=== PATIENT | female | born 1930 | race Caucasian/White ===

== ENCOUNTER 2017-08-17 07:30 | Inpatient (IN) | payer MEDICARE ==
[~2017-08-17] VITALS: Ht 130 cm; Wt 62.5 kg
--- NOTE | ~2017-08-17 | PROC ---
[facility] [address] [place] [address] PROCEDURE REPORT Name: CRISS CLEMONS Room: [address] IN .R.#: [id number] Admission: 08/17/17 Attend Phys: Rohith Summers, Discharge: Date of : [birth year] Report #: [id number] THIS REPORT FOR: //name// For GI report, please see the Provation report in Perceptive 7 content. By: 1135Medical Records Staff BRENT /STEFFANY
[~2017-08-17 07:30] MED LIST: ALBUTEROL2.5 MG/0.5 IH; ALBUTEROL2.5 MG/3 M IH; ALLOPURINOL 10100 M1 PO; APAP500 PO; ASPIR-LOW81 MG PO; ASPIRIN EC81 M1 PO; ASPIRIN81 M2 PO; AUGMENTIN 500-1 EACH PO; AZITHROMYCIN 2250 MG PO; CALCIUM + D3 E1 EACH PO; CALCIUM 600 +1 EAC9 PO; CENTRUM SILVER1 EAC4 PO; CLARITIN10 MG PO; COLACE100 MG PO; DYAZIDE 37.5-21 EACH PO; GARLIC300 MG PO; KLOR-CON 10 ER10 MEQ PO; LASIX 20 MG TAB20 MG PO; LEVOTHYROXIN0.025 MG PO; LIPITOR10 MG PO; LISINOPRIL10 MG PO; LISINOPRIL20 MG PO; MAGNESIUM250 M1 PO; MAGOX 400400 MG PO; MIRALAX17 GM PO; NORVASC10 MG PO; PAIN RELIEVER500 M3 PO; PLAVIX 75 MG TA75 M1 PO; POTASSIUM CHLO10 MEQ PO; SINGULAIR 10 MG10 M1 PO; TOPROL XL25 MG PO; TRIAMTERENE-HC1 EAC1 PO; VITAMIN C + RO500 MG PO; VITAMIN D400 UNI1 PO; VITAMINC500 PO; [UNRECOGNIZED DRUG - OTHER] PO
[2017-08-17 07:32] VITALS: BP 110/62
[2017-08-17] MEDS ORDERED: TRAMADOL 50 MG50 MG PO (07:41)
[2017-08-17] MEDS ORDERED: TYLENOL325 MG PO (07:42)
[2017-08-17] MEDS ORDERED: ANTIVERT25 MG (07:42)
[2017-08-17] MEDS ORDERED: BENGAY113 GM (07:43)
[2017-08-17] MEDS ORDERED: MELATONIN3 MG PO (07:43)
[2017-08-17] MEDS ORDERED: MYRBETRIQ25 MG PO (07:44)
[2017-08-17] MEDS ORDERED: ELIQUIS2.5 MG PO (07:44)
[2017-08-17] MEDS ORDERED: ARICEPT 5 MG TAB5 MG PO (07:45)
[2017-08-17] MEDS ORDERED: NAMENDA 10 MG T10 MG PO (07:45)
[2017-08-17] MEDS ORDERED: CENTRUM SILVER1 EAC4 PO (07:46)
[2017-08-17] MEDS ORDERED: VIACTIV SOFT C1 EACH PO (07:47)
[2017-08-17 08:09] LABS: HEMATOCRIT 24.1 % (37.0-47.0); HEMOGLOBIN 7.6 gm/dL (12.0-15.0); MCH 33.1 pg (26.0-34.0); MCHC 31.5 g/dL (28.0-37.0); MCV 105.2 fL (80.0-100.0); MPV 8.6 fl. (7.2-11.1); NUCLEATED RBCS 0 /100WBC; PLATELET COUNT* 166 thou/uL (150-400); RBC 2.29 mil/uL (4.20-5.00); RDW-CV 17.7 % (10.5-14.5)
[2017-08-17 08:14] LABS: WBC 55.7 thou/uL (4.0-11.0)
[2017-08-17 08:16] LABS: ANION GAP 8 mmol/L (7-16); BUN 32 mg/dL (7-18); CHLORIDE 103 mmol/L (98-107); CO2 28 mmol/L (21-32); CREATININE 1.2 mg/dL (0.6-1.3); GLUCOSE 110 mg/dL (70-99); POTASSIUM 4.2 mmol/L (3.5-5.1); SODIUM 139 mmol/L (136-145)
[2017-08-17 08:17] LABS: APTT 25.4 Seconds (25.0-31.3); INR 1.1; PROTIME 10.9 Seconds (9.20-11.50)
[2017-08-17 08:23] LABS: ALBUMIN 2.7 g/dL (3.4-5.0); ALKALINE PHOSPHATASE 99 U/L (46-116); LIPASE 165 U/L (73-393); SGOT 15 U/L (15-37); SGPT 17 U/L (30-65); TOTAL BILIRUBIN 0.4 mg/dL (<0.1-1.0); TOTAL PROTEIN 5.3 g/dL (6.4-8.2); TROPONIN-I LEVEL <0.06 ng/mL (<0.06)
--- NOTE | 2017-08-17 08:28 | NUR ---
PT HAS BEEN STUCK MULTIPLE TIMES FOR AN IV, WITH UNSUCCESSFUL ATTEMPTS. DR. VILLEGAS NOTIFIED
--- NOTE | 2017-08-17 08:56 | NUR ---
CT OF ABDOMEN PELVIS W/O CONTARST COMPLEATED PATIENT RETURNED TO ED
[2017-08-17 09:51] VITALS: BP 117/42
[2017-08-17 10:00] VITALS: BP 115/42
[2017-08-17 10:08] LABS: ABSOLUTE NEUTROPHILS 2.2 thou/uL (1.6-8.1)
--- NOTE | 2017-08-17 10:08 | EKG ---
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: Karel HERRERA : 1930 Requested By: Pepe Croft Order Number: [id number] MD: Arsh Cuello Measurements Intervals [place] Rate: 84 P: DC: QRS: -54 QRSD: 136 T: -8 QT: 443 QTc: 524 Interpretive Statements Atrial fibrillation RBBB and LAFB Left ventricular hypertrophy Baseline wander in lead(s) V2 Compared to ECG 06/19/2014 09:38:42 no change Electronically Signed On 08-17-2017 10:08:07 CDT by Arsh Cuello [email or web address] <ELECTRONICALLY SIGNED> By: Arsh Cuello MD, [facility] 08/17/17 1008 [phone] Arsh Cuello MD, [facility] /EPI
[2017-08-17 10:17] LABS: ABSOLUTE LYMPHOCYTES 53.5 thou/uL (0.8-5.3)
[2017-08-17 10:20] LABS: ATYPICAL LYMPHS 9 %; PLATELET ESTIMATE ADEQUATE
[2017-08-17 10:30] LABS: ANISOCYTOSIS 1+; OVALOCYTES 1+
[2017-08-17 10:31] LABS: MACROCYTES 1+
[2017-08-17 12:32] LABS: HEMATOCRIT 22.8 % (37.0-47.0); MCH 32.8 pg (26.0-34.0); MCHC 30.9 g/dL (28.0-37.0); MCV 106.3 fL (80.0-100.0); MPV 8.4 fl. (7.2-11.1); RBC 2.15 mil/uL (4.20-5.00); RDW-CV 17.8 % (10.5-14.5)
[2017-08-17 12:35] LABS: WBC 55.5 thou/uL (4.0-11.0)
--- NOTE | 2017-08-17 14:15 | NUR ---
RECEIVED REPORT FROM ERICK YEE IN ER. PT TRANSFERED TO TELE FLOOR AROUND 0955. PT ALERT TO SELF ONLY, PLEASANTLY CONFUSED. VSS. O2 SAT 96% ON RA. PT ORIENTED TO ROOM, BED AND CALL LIGHT - COMMUNICATES UNDERSTANDING BUT IS FORGETFUL AND NEEDS REMINDERS TO USE CALL LIGHT AND NOT GET UP WITHOUT HELP. FAMILY AT BEDSIDE THIS AM DURING ADMISSION - HELPED TO ANSWER ADMISSION QUESTIONS. CARBIDE TOOL DIE MAKER PLACED TRACING AFIB, CHRONIC. ADMISISON ASSESSMENT, EDUCATION AND HISTORY COMPLETED CHARTED. IV TO RIGHT AC INFILTRATED AND WAS REMOVED. PT HAS BEEN UP TO THE BATHROOM ONCE WITH ASSIST X1 - BLOODY SMEAR OF STOOL NOTED IN BRIEF. DOCTOR AWARE. PT ON CLD, TOLERATING WITHOUT ISSUE. PT CURRENTLY DOWNSTAIRS GETTING A MIDLINE. AWAITING PT RETURN TO UNIT.
--- NOTE | 2017-08-17 15:22 | NUR ---
CONSULTED FOR IV ACCESS. REVIEW OF CHART AND PT IS MIDLINE APPROPRIATE. SPOKE WITH PT ABOUT RISK AND BENIFIT OF MIDLINE. VOICED UNDERSTANDING AND AGREED. RIGHT UPPER ARM ASSESSED WITH ULTRASOUND RIGHT BASILIC IDENTIFIED AND NOTED TO BE WIDLEY PATENT. 4FR SINGLE LUMAN POWER MIDLINE PLACED TO RIGHT UPPER BASILIC PRE HOSPITAL PROTOCOL. LINE TRIMMED TO 11CM AND ADVANCED 11CM LEAVING 0CM EXTERNAL. LINE SECURED. PRESSURE HELD BLEEDING CONTINUED FROM INSERTION SITE. DRESSING APPLIED. PT NOTED THAT LINE HAD STARTED BLEEDING AGAIN AND VOICED CONCERN. DRESSING REMOVED. PRESSURE HELD FOR 10MIN. NEW DRESSING APPLIED. PT UP TO BATHROOM. NOTED BLEEDING FROM INSERTION SITE AGAIN. PRESSURE DRESSING APPLIED AND BLEEDING STOPPED. PRIMARY NURSING AWARE. LINE RELEASED FOR USE.
[2017-08-17 16:20] VITALS: BP 111/51
--- NOTE | 2017-08-17 18:25 | NUR ---
PT RETURNED FROM INFUSION AROUND 1515 WITH A RIGHT UPPER ARM MIDLINE. VSS. PT REMAINS ALERT TO SELF ONLY, BUT PLEASANT. INSULATION ENGINEMAN IN PLACE WITH NO CHANGES THIS SHIFT. PT TOLERATING CLD. IVF AND PROTONIX DRIP STARTED. PT DENIES PAIN OR DISCOMFORT. PT UP WITH ASSIST X1 TO THE BATHROOM SEVERAL TIMES, URGENCY AND STRESS INCONTINENCE NOTED. NO MORE SIGNS OF BLEEDING THIS SHIFT. PT CURRENTLY SITTING UP IN BED FINISHING DINNER. FALL PRECAUTIONS IN PLACE. CALL LIGHT IS WITHIN REACH, HOURLY ROUNDING PERFORMED. WCTM FOR DURATION OF SHIFT.
[2017-08-17 20:00] VITALS: BP 122/35
[2017-08-18] VITALS (7 sets, daily range): BP systolic 107–123; BP diastolic 41–57
[2017-08-18 05:01] LABS: HEMATOCRIT 20.4 % (37.0-47.0); MCH 32.8 pg (26.0-34.0); MCHC 30.6 g/dL (28.0-37.0); MCV 107.4 fL (80.0-100.0); MPV 8.7 fl. (7.2-11.1); RBC 1.9 mil/uL (4.20-5.00); RDW-CV 17.7 % (10.5-14.5)
[2017-08-18 05:16] LABS: HEMOGLOBIN 6.2 gm/dL (12.0-15.0); WBC 49.7 thou/uL (4.0-11.0)
[2017-08-18 05:52] LABS: MAGNESIUM 1.6 mg/dL (1.8-2.4); POTASSIUM 3.6 mmol/L (3.5-5.1)
--- NOTE | 2017-08-18 06:27 | NUR ---
HGB 6.2 RECEIVED ORDERS FOR 1 UNIT OF PRBCS.
[2017-08-18 12:03] LABS: HEMATOCRIT 26.7 % (37.0-47.0); HEMOGLOBIN 8.4 gm/dL (12.0-15.0)
[2017-08-18 12:06] LABS: CALCIUM 8.1 mg/dL (8.5-10.1); MAGNESIUM 1.6 mg/dL (1.8-2.4); POTASSIUM 3.9 mmol/L (3.5-5.1)
--- NOTE | 2017-08-18 12:50 | NUR ---
ASSUMED CARE OF PATIENT THIS AM AT 0730. PATIENT IS ALERT, CONFUSED AND DISORIENTED THIS AM. SHE HAS BEEN ORIENTED TO PERSON ONLY. SHE DENIES PAIN. LOW HGB REPORTED BY SYSTEMS ENGINEER AND BLOOD TRANSFUSION ORDERED. BLOOD CONSENT SIGNED BY 2 MIMEOGRAPHER MEMBERS. BLOOD TRANSFUSION GIVEN PER ORDER. PATIENT ASSISTED UP TO THE CHAIR WITH 1 PERSON ASSIST. SHE HAS HAD [address] PANTOJA IN TO ROUND AND WAS NOTIFIED OF PATIENT'S DARK STOOLS. LUNCH AND DINNER ORDERED, BUT PATIENT IS TO BE NPO P MN. PATIENT HAD LOW O2 SATS THIS AM. SHE WAS PLACED ON O2 AT 2 LITERS. TELE SHOWS AFIB. WILL CONTINUE TO MONITOR LABS AND ASSIST WITH ADLS. NO FALLS OR INJURY.
--- NOTE | 2017-08-18 15:43 | NUR ---
CM ATTEMPTED SPEAK TO PATIENT TO ASSESS AND DISCUSS DISCHARGE PLANNING NEEDS. PATIENT ALERT AND CONFUSED. CM AATTEMPTED TO CONTACT PATIENTS SON SUNIL TO DISCUSS AND LEFT A MESSAGE TO RETURN CALL TO DISCUSS PATIENT ASSESSMENT AND DISCHARGE PLANNING NEEDS. CM WILL FOLLOW-UP AT ANOTHER TIME.
[2017-08-18 20:48] LABS: URINE BILIRUBIN NEGATIVE (Negative); URINE BLOOD 2+ (Negative); URINE CLARITY CLEAR; URINE COLOR YELLOW; URINE GLUCOSE-RANDOM NEGATIVE (Negative); URINE KETONES NEGATIVE (Negative); URINE LEUKOCYTES-REFLEX TRACE (Negative); URINE NITRITE-REFLEX NEGATIVE (Negative); URINE PROTEIN NEGATIVE (Negative); URINE UROBILINOGEN 0.2 E.U./dl (0.2-1.0)
[2017-08-18 20:55] LABS: BACTERIA-REFLEX >30 Many /HPF (None Seen); CRYSTALS None Seen /LPF (None Seen); FINE GRANULAR CASTS 0-3 Few /LPF (None Seen); HYALINE CASTS 0-3 Few /LPF (None Seen); MUCUS 4-6 Moderate strn/LPF (None Seen); RENAL EPITHELIAL CELLS 0-3 Few /LPF (None Seen); SQUAMOUS 0-3 Few /LPF (0-3); URINE WBC-REFLEX 6-15 Few /HPF (0-5); WBC CLUMPS Few (None Seen)
[2017-08-19] VITALS: BP 121/46
[2017-08-19 04:00] VITALS: BP 122/45
[2017-08-19 04:44] LABS: HEMATOCRIT 22.2 % (37.0-47.0); MCH 32.8 pg (26.0-34.0); MCHC 31.7 g/dL (28.0-37.0); MCV 103.4 fL (80.0-100.0); MPV 8.5 fl. (7.2-11.1); RBC 2.15 mil/uL (4.20-5.00); RDW-CV 19.4 % (10.5-14.5)
[2017-08-19 05:01] LABS: CALCIUM 7.1 mg/dL (8.5-10.1); MAGNESIUM 1.5 mg/dL (1.8-2.4); POTASSIUM 3.8 mmol/L (3.5-5.1)
[2017-08-19 05:04] LABS: WBC 46.4 thou/uL (4.0-11.0)
--- NOTE | 2017-08-19 06:15 | NUR ---
PT IS ABLE TO COMMUNICATE HER NEEDS TO STAFF WITH MINOR DIFFICULTY; SHE IS CONFUSED AND FORGETFUL AT TIMES. SHE HAS DENIED THE NEED FOR PAIN MEDICATION UP TO THIS TIME. SHE HAS BEEN NPO SINCE MIDNIGHT FOR AN EGD WITH GI LATER TODAY.
--- NOTE | 2017-08-19 08:55 | CON ---
[address] [address] CONSULTATION Name: CRISS CLEMONS Room: [address] IN M.R.#: [id number] Admission: 08/17/17 Attend Phys: Rohith Summers, Discharge: Date of : [birth year] Report #: [id number] THIS REPORT FOR: //name// CC: Arsh Summers DATE OF SERVICE: 08/17/2017 ADDENDUM I have seen and examined the patient and reviewed labs and imaging. The patient is on Eliquis and aspirin for history of AFib. She also has a history of leukemia and presents with anemia with hemoglobin of 7.6. Her last colonoscopy was 12 years ago, which was significant for diverticulosis. Given the patient's clinical picture, we will wait and to try to find out what her baseline hemoglobin is. She follows with Dr. Sheriff and apparently has had lab work with him a few weeks ago. For now, we hold his anticoagulation therapy and monitor her. She may have clear liquid diet. <ELECTRONICALLY SIGNED> By: Jalyn Vila MD 08/19/17 0855 1539 [id number] Vila MD /nt
--- NOTE | 2017-08-19 08:55 | CON ---
[address] [address] CONSULTATION Name: VICKYCRISS TEJADA Room: [address] IN M.R.#: [id number] Admission: 08/17/17 Attend Phys: Rohith Summers, Discharge: Date of : [birth year] Report #: [id number] THIS REPORT FOR: //name// CC: Arsh Edwards DO Rohith Summers DICTATED BY: Flor Francois [facility] DATE OF SERVICE: 08/17/2017 Please note at the time of this dictation, the patient was seen and physically examined by myself. REASON FOR CONSULTATION: GI bleed. HISTORY OF PRESENT ILLNESS: This is a pleasant 86-year-old female who is only oriented to self that comes from an extended care facility, [facility] in [place], [place] in which the staff reported this morning after she had a bowel movement that she had a large amount of bright red blood. Prior to that it is unclear if she has had any other episodes. The patient denies any abdominal discomfort. Family at her bedside states that they have been unaware of any other issues regarding that. She has been eating and drinking fine and to their knowledge, her bowels have been moving normally. The patient saw Dr. Sheriff approximately 6 weeks ago for her leukemia and had blood work drawn. We will obtain those labs for evaluation to compare her hemoglobin to see if this is an acute or chronic problem. The patient did have a colonoscopy back in [address] Merritt that showed left-sided diverticulosis, otherwise essentially negative. ALLERGIES: COMPAZINE, CODEINE, DOXYCYCLINE, SULFA. MEDICATIONS FROM HOME: Zestril, aspirin, Lasix, Ultram, Tylenol, Antivert, BenGay, melatonin, Eliquis, Aricept, Namenda, Centrum, calcium carbonate, allopurinol, Norvasc, Synthroid, potassium chloride, Toprol and magnesium oxide. PAST MEDICAL HISTORY: Significant chronic leukemia, hypertension, shoulder problems, gout, congestive heart failure, atrial fib, issues with her "kidneys" and dementia. PAST SURGICAL HISTORY: Hysterectomy, left hip replacement, appendectomy. FAMILY HISTORY: Noncontributory. SOCIAL HISTORY: The patient is only alert x 1. Denies any alcohol, tobacco or illegal drug use and resides in [facility] [place] [address] CONSULTATION Name: CRISS CLEMONS Room: [address]#: [id number] Admission: 08/17/17 Attend Phys: Rohith Summers, Discharge: Date of : [birth year] Report #: [id number]. REVIEW OF SYSTEMS: Twelve-point review of systems is essentially negative except what is mentioned in the HPI. PHYSICAL EXAMINATION: VITAL SIGNS: Temperature 36.2, pulse 91, respirations 19, blood pressure 117/42. HEART: Regular rate and rhythm. LUNGS: Clear, slightly diminished. ABDOMEN: Soft, positive bowel sounds in all 4 quadrants with no masses or tenderness noted. LABORATORY DATA: Hemoglobin on admission was 7.6, hematocrit 24.1, white count is 55,000, platelets 166. Sodium 139, potassium 4.2, chloride 103, CO2 of 28, BUN is 32, creatinine 1.2, GFR is 42 and glucose is 110. LFTs are completely normal. Total protein is 5.3, albumin is 2.7. Lipase is 165. PT is 10.9, INR is 1.1. CT of the abdomen and pelvis shows gallbladder nondistended. Multiple calculi noted. External scattered left-sided diverticular disease with some mesenteric lymph nodes that are slightly enlarged. IMPRESSION: 1. Rectal bleeding. 2. Anemia, questionable acute in nature. 3. History of leukemia. 4. Anticoagulant therapy, atrial fibrillation, on aspirin and Eliquis. 5. Dementia. PLAN: 1. We will await labs from Dr. Sheriff's office for comparison to see if this is an acute or a chronic problem for the patient. 2. We will hold her anticoagulants. 3. We will start her on some stool softeners. 4. Further recommendations to be made once the labs have been further reviewed. Thank you for allowing us to participate in this patient's care. Please do not hesitate to call with any questions in regard to this consult. <ELECTRONICALLY SIGNED> By: Jalyn Vila MD 08/19/17 0855 1057 [id number] Vila MD /nt
[2017-08-19 09:30] VITALS: BP 126/56
--- NOTE | 2017-08-19 10:25 | NUR ---
RECEIVED REPORT FROM NADJA AND ASSUMED CARE OF PT @ 9677.PT IS ALERT BUT CONFUSED AND FORGETFUL.VSS,TRACING AFIB ON THE MONITOR.PT LAST BM WAS YESTERDAY.IV LEFT WRIST REMOVED BY PT THIS AM.RIGHT UPPER ARM MIDLINE PATENT WITH NS RUNNING @ 100.PT IS CALM AND COOPERATIVE WITH NO C/O PAIN AT TIME OF ASSESSMENT.PT IS UP WITH ONE ASSIST TO BSC AND CHAIR.NPO STATUS MAINTAINED.PT WENT DOWN FOR EGD PROCEDURE THIS AM.WILL CONTINUE TO MONITOR.
[2017-08-19 11:30] VITALS: BP 119/48
[2017-08-19 15:28] VITALS: BP 113/41
--- NOTE | 2017-08-19 17:58 | NUR ---
VSS,CARDIAC MONITORING IN PLACE WITH NO CHANGES THIS SHIFT.PT REMAINS ON 3L O2 NC.PT PROGRESSING TOWARDS GOALS.PT HAS DENIED PAIN THIS SHIFT.IVF FLUIDS INFUSING PER ORDERS.PT WILL BE NPO AT MIDNIGHT FOR ABDOMINAL ULTRASOUND IN AM.PT INFORMED OF PLAN OF CARE AND COMMUNICATES UNDERSTANDING BUT NEEDS REINFORCEMENT DUE TO CONFUSION.PT WAS UP IN CHAIR FOR MOST OF AFTERNOON.HOURLY ROUNDING COMPLETED FOR PT SAFETY.CALL LIGHT AND FALL PRECAUTIONS IN PLACE.WILL CONTINUE TO MONITOR FOR DURATION OF SHIFT.PICTURES TAKEN FOR SUNDAY PHOTOS.
[2017-08-19 20:14] LABS: HEMOGLOBIN 7.3 gm/dL (12.0-15.0); MCH 32.6 pg (26.0-34.0); MCHC 31.7 g/dL (28.0-37.0); MCV 102.8 fL (80.0-100.0); MPV 8.5 fl. (7.2-11.1); RBC 2.24 mil/uL (4.20-5.00); RDW-CV 18.8 % (10.5-14.5)
[2017-08-19 20:18] VITALS: BP 119/52
[2017-08-19 20:32] LABS: WBC 42.2 thou/uL (4.0-11.0)
[2017-08-20] VITALS: BP 110/46
[2017-08-20 04:00] VITALS: BP 127/47
[2017-08-20 05:19] LABS: HEMATOCRIT 21.5 % (37.0-47.0); MCV 103.2 fL (80.0-100.0); RBC 2.08 mil/uL (4.20-5.00); RDW-CV 18.8 % (10.5-14.5)
[2017-08-20 05:35] LABS: CALCIUM 6.9 mg/dL (8.5-10.1); HEMOGLOBIN 6.9 gm/dL (12.0-15.0); MAGNESIUM 1.7 mg/dL (1.8-2.4); POTASSIUM 3.8 mmol/L (3.5-5.1); WBC 41.4 thou/uL (4.0-11.0)
--- NOTE | 2017-08-20 06:37 | NUR ---
PT IS ABLE TO COMMUNICATE HER NEEDS TO STAFF EFFECTIVELY; SHE HAS BEEN LESS CONFUSED THIS SHIFT THAN DURING YESTERDAY'S SHIFT. SHE HAS DENIED THE NEED FOR PAIN MEDICATION UP TO THIS TIME. SHE HAS BEEN NPO SINCE MIDNIGHT FOR AN ABDOMINAL ULTRASOUND LATER TODAY. SHE MAY ALSO HAVE A SWALLOW VIDEO SWALLOW STUDY TODAY WELL.
[2017-08-20 07:52] VITALS: BP 124/51
--- NOTE | 2017-08-20 10:19 | NUR ---
RECEIVED REPORT FROM NADJA AND ASSUMED CARE OF PT @ 1577.PT IS A/O X3,VSS,TRACING AFIB ON THE MONITOR.LUNG SOUNDS ARE CLEAR DIMINSHED.MIDLINE RIGHT UPPER ARM PATENT AND SALINE LOCKED.LAST BM WAS YESTERDAY.PT IS CALM AND COOPERATIVE WITH NO C/O PAIN AT TIME OF ASSESSMENT.PT IS UP WITH ONE ASSIST TO BATHROOM AND CHAIR.PT GOT CLEANED UP THIS MORNING WITH ASSIST OF ONE.PT LEFT RESTING IN CHAIR WITH CALL LIGHT AND FALL PRECAUTIONS IN PLACE.WILL CONTINUE TO MONITOR. FLUIDS D/C THIS AM.ORDER FOR BLOOD TRANSFUSION THIS AM.
--- NOTE | 2017-08-20 10:31 | NUR ---
Pt is A&Ox 2, spoke with Pt's son, Arsh, via phone to confirm info obtained from Pt. Pt resides at [facility] in the [facility], goal is to return there at id. Facility provides meals, assist with medication, and bath and grooming as needed. Pt uses a walker or cane for mobility. No home o2. Hx of [facility]. Hx of SNF at [facility]. Son stated that he will be leaving to go out of town tomorrow, but stated that his sister, Marilyn [phone], will be available and can provide dc transportation. CM spoke with John, staff at [facility], they are able to accept Pt back at id, will need nurse report called to [phone] and dc orders faxed to [phone]. Following.
[2017-08-20 11:30] VITALS: BP 121/51
--- NOTE | 2017-08-20 12:05 | PATH ---
[address] [address] PATHOLOGY RPT PROCEDURE Name: MINE CLEMONS Room: [address] IN M.R.#: [id number] Admission: 08/17/17 Date of : [birth year] Discharge: Report #: [id number] Path Case #: [id number] [facility] Accession Number: [id number] . 01 Material submitted: . 5 PERIPHERAL SMEARS . 02 Diagnosis: Peripheral smear: - Marked leukocytosis and absolute lymphocytosis comprised of small mature appearing lymphocytes with smudge cells and few prolymphocytes (see comment). - Macrocytic anemia, moderate, with mild anisopoikilocytosis. [facility]/08/20/2017 . 02 Comment: The peripheral smear shows a marked leukocytosis and absolute lymphocytosis comprised predominantly of small mature appearing lymphocytes with smudge cells and a few prolymphocytes noted. 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 There is a moderate macrocytic anemia. There is no morphologic evidence of hemolysis. (JPM:pit; 08/20/2017) . 02 Electronically signed: . Francis Menendez MD, Pathologist NPI- [id number] . 01 Gross description: . Received are two Renteria stained smears, labeled, Mine Clemons. /QTP . 02 Microscopic: . CBC Data (): WBC 55,700 K/CMM, and the automated WBC differential reveals 8.5% neutrophils, 90.3% lymphs, 0.9% mono, 0.1% eos, and 0.2% baso. RBC 2.29 M/CMM, hemoglobin 7.6 G/DL, hematocrit 24.1%, MCV 105.2 FL, MCH 33.1 PG, MCHC 31.5 G/DL, and RDW 17.7%. Platelet count 166 K/CMM. . Peripheral Smear: The peripheral smear is reviewed. The WBC count is markedly increased. There is a marked absolute lymphocytosis. There are smudge cells present. The WBC differential reveals a predominance of lymphocytes, with small populations of neutrophils and monocytes noted. The lymphocyte population consists predominantly of small, mature appearing lymphocytes. There are a few prolymphocytes noted. There are no circulating blasts. Red blood cells appear normochromic. There is mild polychromasia. Red blood cells show mild anisocytosis and range from mildly [place] [address] PATHOLOGY RPT PROCEDURE Name: KACIMINE Room: [address] IN [facility]#: [id number] Admission: 08/17/17 Date of : [birth year] Discharge: Report #: [id number] Path Case #: [id number] Red blood cells show mild poikilocytosis with a few ovalocytes and occasional tear drop red blood cells noted. There are no spherocytes identified. Platelets appear adequate in number and normal in morphology. . (JPM:pit; 08/20/2017) . 02 CPT . [id number] Performed at: 01 [facility] [address] [facility] [address], [place] [id number] MD Brando Walton MD Phone: [phone] Performed at: 02 [facility] [address] [place], [place] [id number] MD Francis Menendez MD Phone: [phone]
[2017-08-20 12:43] VITALS: BP 118/42; BP 119/43; BP 122/43; BP 140/49; BP 150/63
--- NOTE | 2017-08-20 16:03 | NUR ---
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 At visit pt denied wt loss, reported UBW 127 lb. Pt reported normal appetite, denied acute nutrition concerns. Pt noted to have hx of dementia, HTN, CLL. Albumin 2.7. Laisx and other meds reviewed. Was NPO this am, no prior intake records. Does not appear at significant nutrition risk at this time. RD to follow up 08/24, available by consult PRN.
--- NOTE | 2017-08-20 18:53 | NUR ---
VSS,CARDIAC MONITORING IN PLACE WITH NO CHANGES THIS SHIFT.PT REMAINS ON 3L O2 NC.PT PROGRESSING TOWARDS GOALS.DENIED PAIN THIS SHIFT.RECEIVED ONE UNIT OF BLOOD PER ORDERS WITH NO COMPLICATIONS.PT SAT UP IN CHAIR FOR SEVERAL HOURS THIS SHIFT.HOURLY ROUNDING COMPLETED FOR PT SAFETY. CALL LIGHT AND FALL PRECAUTIONS IN PLACE.WILL CONTINUE TO MONITOR FOR DURATION OF SHIFT.
[2017-08-20 19:07] LABS: HEMATOCRIT 30.6 % (37.0-47.0)
[2017-08-20 19:08] LABS: HEMOGLOBIN 9.7 gm/dL (12.0-15.0)
[2017-08-20 20:00] VITALS: BP 137/48
[2017-08-21] VITALS: BP 119/48
[2017-08-21 04:00] VITALS: BP 127/54
--- NOTE | 2017-08-21 04:56 | NUR ---
ASSUMED CARE AROUND 1930. PT A/OX3, MORE DISORIENTED IN MIDDLE OF NIGHT. PT BECAME UPSET WHEN IV PUMP WAS ALARMING AND STATED SHE WANTED TO LEAVE, THAT THE ALARM HAS BEEN GOING OFF "FOR THREE YEARS". TELE MONITOR TRACING AFIB/BBB WITH HR CONTROLLED. ON 2L NC, PT REMOVES OFTEN. MIDLINE SALINE LOCKED. VSS, PT DENIES PAIN. BEDALARM IN PLACE, CALL LIGHT IN REACH, WILL CONTINUE WITH PLAN OF CARE.
[2017-08-21 06:29] LABS: HEMATOCRIT 27.4 % (37.0-47.0); MCV 99.2 fL (80.0-100.0); RBC 2.76 mil/uL (4.20-5.00)
[2017-08-21 06:32] LABS: MCH 32.7 pg (26.0-34.0); MPV 8.5 fl. (7.2-11.1); NUCLEATED RBCS 0 /100WBC; PLATELET COUNT* 155 thou/uL (150-400); RDW-CV 20.3 % (10.5-14.5)
[2017-08-21 06:33] LABS: WBC 52.2 thou/uL (4.0-11.0)
[2017-08-21 06:38] LABS: ALBUMIN 2.5 g/dL (3.4-5.0); CREATININE 1.1 mg/dL (0.6-1.3); MAGNESIUM 1.8 mg/dL (1.8-2.4); POTASSIUM 3.8 mmol/L (3.5-5.1); TOTAL BILIRUBIN 0.5 mg/dL (<0.1-1.0); TOTAL PROTEIN 5.4 g/dL (6.4-8.2)
[2017-08-21 07:05] LABS: ABSOLUTE LYMPHOCYTES 43.3 thou/uL (0.8-5.3); ABSOLUTE MONOCYTES 2.1 thou/uL (0.0-1.2); ABSOLUTE NEUTROPHILS 6.8 thou/uL (1.6-8.1); ANISOCYTOSIS 2+; ATYPICAL LYMPHS 6 %; PLATELET ESTIMATE ADEQUATE
[2017-08-21 07:52] VITALS: BP 145/51
--- NOTE | 2017-08-21 10:12 | NUR ---
RECEIVED REPORT FROM JULIUS AND ASSUMED CARE OF PT @ 4642.PT IS A/O BUT CONFUSED AND FORGETFUL.VSS,TRACING AFIB WITH BBB ON THE MONITOR.LUNG SOUNDS ARE COARSE WITH WHEEZES.LAST BM WAS THIS AM.RIGHT UPPER ARM MIDLINE PATENT AND SALINE LOCKED.PT IS CALM AND COOPERATIVE WITH NO C/O PAIN AT TIME OF ASSESSMENT.PT IS UP WITH SBA TO BSC OR BATHROOM.PT LEFT RESTING IN BED WITH CALL LIGHT AND FALL PRECAUTIONS IN PLACE. WILL CONTINUE TO MONITOR.
[2017-08-21 11:10] LABS: HEMATOCRIT 30.1 % (37.0-47.0); HEMOGLOBIN 9.8 gm/dL (12.0-15.0)
[2017-08-21 11:30] VITALS: BP 129/62
--- NOTE | 2017-08-21 16:37 | NUR ---
I have reviewed the documentation by BOBBY BASS from TODAY to 08/21/17 and I concur with it. ILSA BROOKS
[2017-08-21 17:20] VITALS: BP 102/48
[2017-08-21 17:45] LABS: BE 3.7 mmol/L (-2 to +3); PCO2 41.4 mmHg (35.0-45.0); PO2 74.9 mmHg (75.0-100.0); pH 7.448 (7.340-7.450)
[2017-08-21 17:54] LABS: ABSOLUTE BASOPHILS 0.1 thou/uL (0.0-0.2); ABSOLUTE EOSINOPHILS 0.1 thou/uL (0.0-0.7); ABSOLUTE MONOCYTES 0.9 thou/uL (0.0-1.2); ABSOLUTE NEUTROPHILS 5.2 thou/uL (1.6-8.1); BASOPHILS 0.2 %; EOSINOPHILS 0.1 %; HEMATOCRIT 30.2 % (37.0-47.0); HEMOGLOBIN 9.8 gm/dL (12.0-15.0); LYMPHOCYTES 88.8 %; MCH 32.4 pg (26.0-34.0); MCHC 32.3 g/dL (28.0-37.0); MONOCYTES 1.6 %; MPV 8.5 fl. (7.2-11.1); NUCLEATED RBCS 0 /100WBC; PLATELET COUNT* 172 thou/uL (150-400); POLYS 9.3 %; RBC 3.02 mil/uL (4.20-5.00); RDW-CV 20.7 % (10.5-14.5)
[2017-08-21 17:59] LABS: ABSOLUTE LYMPHOCYTES 49.6 thou/uL (0.8-5.3)
[2017-08-21 18:00] LABS: WBC 55.8 thou/uL (4.0-11.0)
[2017-08-21 18:01] LABS: ANION GAP 7 mmol/L (7-16); BUN 22 mg/dL (7-18); CALCIUM 8.7 mg/dL (8.5-10.1); CHLORIDE 103 mmol/L (98-107); CO2 30 mmol/L (21-32); CREATININE 1.1 mg/dL (0.6-1.3); GLUCOSE 120 mg/dL (70-99); SODIUM 140 mmol/L (136-145)
[2017-08-21 18:08] LABS: ALBUMIN 2.8 g/dL (3.4-5.0); ALKALINE PHOSPHATASE 113 U/L (46-116); SGOT 36 U/L (15-37); SGPT 17 U/L (30-65); TOTAL BILIRUBIN 0.3 mg/dL (<0.1-1.0); TROPONIN-I LEVEL <0.06 ng/mL (<0.06)
--- NOTE | 2017-08-21 19:22 | NUR ---
NURSE WENT TO CHECK ON PT @ 1725 AND FOUND PT UNRESPONSIVE IN CHAIR.NO RESPONSE TO STERNAL RUB.NURSE CALLED FOR HELP.RAPID RESPONSE CALLED.CHARGE NURSE NOTIFIED.SOIL SPECIALIST NOTIFIED.DR MARIE NOTIFIED.PT VSS TRACING AFIB WITH BBB ON THE MONITOR.ON 2L O2 NC WITH O2 SAT 96%.CHEST XRAY COMPLETED.FULL SET OF LABS DRAWN.CT HEAD COMPLETED.NEURO CONSULTED.EKG COMPLETED.BLOOD GLUCOSE COMPLETED WITH 116 RESULTS.ABG COMPLETED.FAMILY OF PT CALLED AND NOTIFIED OF CHANGE IIN STATUS.FAMILY CAME TO HOSPITAL STATING THAT PT IS DNR.DR MARIE NOTIFIED AND CODE STATUS CHANGED TO DNR.DNR BRACELET PUT ON PT.REPORT GIVEN TO ALFREDA ON ONCOLOGY TECHNICIAN.HOURLY ROUNDING COMPLETED FOR PT SAFETY.CALL LIGHT AND FALL PRECAUTIONS IN PLACE.
[2017-08-21 20:00] VITALS: BP 145/61
[2017-08-22] VITALS: BP 110/48
--- NOTE | 2017-08-22 00:22 | NUR ---
ASSUMED PT CARE AT 1930, PT IS NONRESPONSIVE, AT THIS TIME. PT MAY OCCASIONALY SHAKE HER HEAD. AND MOVE HER FEET. BUT PT DOES NOT OPEN HER EYES, PUPILS ARE SLUGGISH BUT STILL REACTIVE TO LIGHT. OR FOLLOW COMMANDS. PT IS TRACING AFIB ON THE MONITOR, ON 3L NC SATTING MID TO HIGH 90'S. PT IS HAVING TROUBLE WITH SECRETIONS, PT HAS BEEN GETTING SUCTIONED WITH A YONKER WITH MODERATE AMOUNTS OF THICK WHITE SPUTUM. THIS RN GOT AN ORDER FROM FOR DEEP SUCTIONING. PT WAS DEEP SUCTIONED ONLY ONCE THIS SHIFT. THE SHIFT PRGRESSED, PT STARTED TO HAVE AGONAL BREATHING, WITH PERIODS OF APNEA LASTING 10-20 SECONDS LONG. THIS RN CALLED DAUGHTER CASE, TO MAKE HER AWARE OF THE STATUS. CHANGE. OTHER VITAL SIGNS STABLE.
[2017-08-22 04:00] VITALS: BP 151/50
[2017-08-22 05:24] LABS: ABSOLUTE BASOPHILS 0.1 thou/uL (0.0-0.2); ABSOLUTE LYMPHOCYTES 71.8 thou/uL (0.8-5.3); ABSOLUTE MONOCYTES 1.3 thou/uL (0.0-1.2); BASOPHILS 0.1 %; HEMATOCRIT 31.5 % (37.0-47.0); HEMOGLOBIN 10.1 gm/dL (12.0-15.0); LYMPHOCYTES 90.6 %; MCHC 31.9 g/dL (28.0-37.0); MCV 100.1 fL (80.0-100.0); MONOCYTES 1.7 %; NUCLEATED RBCS 0 /100WBC; PLATELET COUNT* 197 thou/uL (150-400); POLYS 7.6 %; RBC 3.15 mil/uL (4.20-5.00); RDW-CV 19.9 % (10.5-14.5)
[2017-08-22 05:54] LABS: CALCIUM 8.7 mg/dL (8.5-10.1); POTASSIUM 3.9 mmol/L (3.5-5.1); TOTAL BILIRUBIN 0.3 mg/dL (<0.1-1.0); TOTAL PROTEIN 6.4 g/dL (6.4-8.2)
[2017-08-22 05:56] LABS: WBC 79.3 thou/uL (4.0-11.0)
[2017-08-22 08:00] VITALS: BP 142/56
[2017-08-22 09:21] LABS: TROPONIN-I LEVEL <0.06 ng/mL (<0.06)
--- NOTE | 2017-08-22 10:19 | NUR ---
Updated John at [facility] of Pt's current condition. Following.
[2017-08-22 12:03] VITALS: BP 169/62
--- NOTE | 2017-08-22 13:03 | EKG ---
[place] [address] ELECTROCARDIOGRAM REPORT Name: CRISS CLEMONS Room: [address] ADM IN M.R.#: [id number] Admission: 08/17/17 Attend Phys: Rohith Summers, Discharge: Date of : [birth year] Report #: [id number] THIS REPORT FOR: //name// [facility] Test Date: 2017-08-21 Test Time: 17:42:11 Pat Name: CRISS CLEMONS Department: Room: [address] Gender: F Cdl Program Coordinator: : 1930 Requested By: Rohith Summers Order Number: [id number] MD: Efren Jenkins Measurements Intervals [place] Rate: 75 P: VT: QRS: -54 QRSD: 141 T: 29 QT: 467 QTc: 522 Interpretive Statements Atrial fibrillation Right bundle branch block LVH with IVCD and secondary repol abnrm Prolonged QT interval Compared to ECG 08/17/2017 07:55:02 No significant change Electronically Signed On 08-22-2017 13:03:04 CDT by Efren Jenkins [email or web address] <ELECTRONICALLY SIGNED> By: Efren Jenkins MD, [facility] 08/22/17 1303 1742 1742 Efren Jenkins MD, [facility] /EPI
--- NOTE | 2017-08-22 14:28 | NUR ---
RECEIEVED REPORT FROM ALFREDA AND ASSUMED CARE OF PT @ 3550.PT IS UNRESPONSIVE DUE TO POSSIBLE STROKE,VSS,TRACING AFIB WITH BBB AND PVC ON THE MONITOR.LUNG SOUNDS ARE COARSE WITH WHEEZES.MRI COMPLETED THIS AM-SEE RESULTS IN CHART. DISCUSSED RESULTS OF MRI WITH PT'S FAMILY AND ALSO DISCUSSED COMFORT CARE MEASURES.FAMILY IN AGREEMENT WITH COMFORT CARE. COMFORT CARE ORDERS PUT IN.MORPHINE GIVEN.FAMILY AT BEDSIDE.COMFORT CART ORDERED FOR FAMILY.CALL LIGHT IN PLACE. WILL CONTINUE TO MONITOR CLOSELY.
--- NOTE | 2017-08-22 17:48 | NUR ---
PT ON COMFORT CARE.PT @ 1520.TWO NURSES CONFIRMED TIME OF .MTN CALLED.CHARGE NURSE,SENIOR ENERGY MARKET COORDINATOR,AND PHYSICIAN NOTIFIED. HOME CHOSEN BY FAMILY.[facility].PT CLEANED UP BY NURSING STAFF.MIDLINE REMOVED.HEART MONITPR REMOVED AND RETURNED TO NURSING STATION.ALVAREZ REMOVED.ALL THINGS PACKED AND LEAVING WITH FAMILY. SECURITY CALLED WHEN HOME ARRIVED TO ESCORT PT REMAINS @ 1730.
--- NOTE | 2017-08-24 16:08 | NUR ---
I have reviewed the documentation by BOBBY BASS from 08/21/17 to 08/24/17 and I concur with it. ILSA BROOKS
--- NOTE | 2017-08-27 11:07 | PATH ---
[address] [address] PATHOLOGY RPT PROCEDURE Name: CRISS CLEMONS Room: [address] IN M.R.#: [id number] Admission: 08/17/17 Date of : [birth year] Discharge: 08/22/17 Report #: [id number] Path Case #: [id number] [facility] Accession Number: [id number] . 01 Material submitted: . ANTRAL BIOPSY RULE OUT H PYLORI . 01 Clinical history: . Small antral ulcers Rule out H. pylori . 02 Diagnosis: Antral biopsy: - Mild chronic antral gastritis, typical of reactive gastropathy (chemical gastritis), negative for Helicobacter pylori organisms and dysplasia. . (HEATHER:mml; 08/21/2017) QL/08/21/2017 . 02 Electronically signed: . Arturo Lomeli MD, Pathologist NPI- [id number] . 01 Gross description: . The specimen is received in formalin, labeled "DickMeyer, Eldean, antral BX" and consists of 2 fragments of toribio soft tissue measuring 0.5 x 0.3 x 0.2 cm and 0.4 x 0.4 x 0.2 cm. They are entirely submitted in A1. (SDY; 08/20/2017) SYU/SYU . 02 Pathologist provided ICD-10: K29.50 . 02 CPT . [id number] Performed at: 01 [facility] [address] [place] [address] [address], [place], [place] [id number] MD Brando Walton MD Phone: [phone] Performed at: 02 [facility] [address] [place], [place] [id number] MD Arturo Lomeli MD Phone: [phone]
== END 2017-08-22 15:20 | DRG 377 ==
LOC: M.ERS 07:30 → M.2W 08:57 → M.TBA-ER 08:57 → M.2W 10:07
PROVIDERS: Family Medicine; Internal Medicine; Internal Medicine Gastroenterology; ADMIT Family Medicine
PROC: B54MZZA Ultrasonography of Right Upper Extremity Veins, Guidance (ICD-10-PCS; 2017-08-17)
PROC: 05HY33Z Insertion of Infusion Device into Upper Vein, Percutaneous Approach (ICD-10-PCS; 2017-08-17)
PROC: 30243N1 Transfusion of Nonautologous Red Blood Cells into Central Vein, Percutaneous Approach (ICD-10-PCS; principal; 2017-08-18)
PROC: 0DB98ZX Excision of Duodenum, Via Natural or Artificial Opening Endoscopic, Diagnostic (ICD-10-PCS; 2017-08-19)
PROC: 30243N1 Transfusion of Nonautologous Red Blood Cells into Central Vein, Percutaneous Approach (ICD-10-PCS; 2017-08-20)
DX: K57.91 Diverticulosis of intestine, part unspecified, without perforation or abscess with bleeding (principal); G93.40 Encephalopathy, unspecified; R65.11 Systemic inflammatory response syndrome (SIRS) of non-infectious origin with acute organ dysfunction; N17.0 Acute kidney failure with tubular necrosis; N39.0 Urinary tract infection, site not specified; D62 Acute posthemorrhagic anemia; K25.9 Gastric ulcer, unspecified as acute or chronic, without hemorrhage or perforation; I10 Essential (primary) hypertension; E03.9 Hypothyroidism, unspecified; E83.42 Hypomagnesemia; K21.0 Gastro-esophageal reflux disease with esophagitis; K44.9 Diaphragmatic hernia without obstruction or gangrene; D35.02 Benign neoplasm of left adrenal gland; F03.90 Unspecified dementia, unspecified severity, without behavioral disturbance, psychotic disturbance, mood disturbance, and anxiety; Z66 Do not resuscitate; K80.80 Other cholelithiasis without obstruction; M10.9 Gout, unspecified; I50.9 Heart failure, unspecified; I48.91 Unspecified atrial fibrillation; Z96.642 Presence of left artificial hip joint; Z90.710 Acquired absence of both cervix and uterus; Z98.890 Other specified postprocedural states; Z88.6 Allergy status to analgesic agent; Z88.2 Allergy status to sulfonamides; Z88.8 Allergy status to other drugs, medicaments and biological substances; Z85.6 Personal history of leukemia; Z79.01 Long term (current) use of anticoagulants; Z82.49 Family history of ischemic heart disease and other diseases of the circulatory system